=== PATIENT | male | born 1985 | race African-American/Black ===

== ENCOUNTER 2022-07-23 13:11 | Emergency (ER) | payer OTHER, SELFPAY ==
[2022-07-23 13:18] VITALS: BP 155/93; PULSE 88; RESP 20; TEMP 36.5; O2SAT 100
--- NOTE | 2022-07-23 13:44 | ED.URI ---
HPI - URI/Sore Throat General Chief Complaint: Upper Respiratory Infection Stated Complaint: Sore Throat/Cough Time Seen by Provider: 07/23/22 13:35 Source: patient, family and RN notes reviewed History of Present Illness HPI Narrative: Patient is a 37-year-old male who presents the urgent care with complaints of a cough since Wednesday. Patient states that he has been taking Mucinex, Tylenol, ibuprofen and Robitussin. Patient states that the sore throat started after the cough. Denies any fever, nausea, vomiting or body aches. Denies of any ill exposures. No other acute complaints. No acute distress noted. Patient read the plan of care. Some parts of this dictation were generated by voice recognition software and may contain typographical and/or grammatical inaccuracies. Related Data Allergies Allergy/AdvReac Type Severity Reaction Status Date / Time Penicillins Allergy Unknown Unknown Verified 07/23/22 13:30 Review of Systems Review of Systems: CONSTITUTIONAL: Denies fever, chills, or sweats. EYES: Denies visual changes, redness, or discharge. ENT: Denies rhinorrhea, congestion, otalgia. Reports of sore throat and postnasal drainage CARDIOVASCULAR: Denies chest pain, palpitations, or edema. RESPIRATORY: Reports of cough without dyspnea GENITOURINARY: Denies dysuria or hematuria. SKIN: Denies rash or itching. MUSCULOSKELETAL: Denies back pain, joint pain, or myalgia. NEUROLOGIC: Denies headache, numbness, or weakness. All other systems reviewed are negative, except as documented in HPI. PMFSH Comments At the time of my signature, I reviewed and agree with the nursing past medical, surgical, social, and family history. There is no relevant family history pertinent to the patient complaint. Exam Narrative: GENERAL: This is a well-nourished, well-developed patient, in no apparent distress. HEAD: normocephalic, atraumatic. EYES: PERRL. Sclera clear/white. Vision is grossly intact. EARS: External ears normal, auditory canals clear and without drainage, TMs normal without perforation. Hearing grossly intact. NOSE: External nose normal with no obvious nasal discharge, nares without redness, no rhinorrhea. THROAT: Mucous membranes moist, posterior pharynx clear. Moderate postnasal drainage NECK: Neck supple, mild tender bilateral submandibular lymphadenopathy CARDIOVASCULAR: Regular rate and rhythm without murmurs, gallops, or rubs. RESPIRATORY: Dry cough noted on exam. Clear to auscultation. Breath sounds equal bilaterally. No wheezes, rales, or rhonchi. SKIN: warm, intact with no suspicious lesions or rash, good texture and turgor. NEURO: awake, alert, and oriented to person, place and time. There were no obvious focal neurologic abnormalities. EXTREMITIES: No clubbing, cyanosis, or edema. Course Course Level of Care: Express Care Visit Vital Signs Vital signs: Vital Signs Temperature 97.7 F 07/23/22 13:18 Pulse Rate 88 07/23/22 13:18 Respiratory Rate 20 07/23/22 13:18 Blood Pressure 155/93 H 07/23/22 13:18 Pulse Oximetry 100 07/23/22 13:18 Oxygen Delivery Room Air 07/23/22 13:18 Temperature 97.7 F 07/23/22 13:18 Pulse Rate 88 07/23/22 13:18 Respiratory Rate 20 07/23/22 13:18 Blood Pressure 155/93 H 07/23/22 13:18 Pulse Oximetry 100 07/23/22 13:18 Oxygen Delivery Room Air 07/23/22 13:18 Reviewed-patient is informed that they may have pre-hypertension or hypertension based on a blood pressure reading in the department. I recommend the patient call the primary care provider listed on their discharge instructions or a physician of their choice this week to arrange follow-up for further evaluation of possible pre-hypertension or hypertension. MDM - URI/Sore Throat MDM Narrative Medical decision making narrative: Advised patient complete the steroid regimen as prescribed. Be sure to eat and drink with the medication. Use the Tessalon Perles as needed for nonproductive cough. Take
== END 2022-07-23 13:57 | disposition home or self-care (01) ==
PROVIDERS: Emergency Provider Nurse Practitioner Family
DX: J06.9 Acute upper respiratory infection, unspecified (principal)
CPT/HCPCS: 99213; G0463

== ENCOUNTER 2022-09-28 13:03 | Emergency (ER) | payer OTHER, SELFPAY ==
[2022-09-28 13:20] VITALS: BP 148/85; PULSE 82; RESP 20; TEMP 36.6; O2SAT 100
--- NOTE | 2022-09-28 14:39 | ED.URI ---
HPI - URI/Sore Throat General Chief Complaint: Upper Respiratory Infection Stated Complaint: entire head hurts diarrhea Time Seen by Provider: 09/28/22 14:39 Source: patient and RN notes reviewed Mode of arrival: ambulatory Limitations: no limitations History of Present Illness HPI Narrative: 37-year-old male presents with concern for chills, sweats, sinus pressure, fatigue, headache, dizziness when he stands up. He reports symptoms worsened yesterday, other symptoms started 3 days before that. MD elicited complaint: nasal congestion and other Related Data Allergies Allergy/AdvReac Type Severity Reaction Status Date / Time Penicillins Allergy Unknown Unknown Verified 09/28/22 13:28 Review of Systems Review of Systems: CONSTITUTIONAL: Report malaise, reports fatigue. Denies chills, sweats, or fever. EYES: Denies visual changes, redness, or discharge. ENT: Reports rhinorrhea, congestion, sinus pain. Denies otalgia and sore throat. CARDIOVASCULAR: Denies chest pain, palpitations, or edema. RESPIRATORY: Reports cough. Denies dyspnea. GASTROINTESTINAL: Denies abdominal pain, nausea, vomiting, diarrhea SKIN: Denies rash or itching. MUSCULOSKELETAL: Reports myalgia. NEUROLOGIC: Reports headache. All systems reviewed & are unremarkable except as noted in HPI and below PMFSH Comments At time of signature, agree with nursing past medical, surgical, social and family history. There is no relevant family history pertinent to the presenting complaint Exam Narrative: GENERAL: Well-appearing, well-nourished, and in no acute distress. HEAD: Normocephalic EYES: PERRLA, conjunctivae clear ENT: Nares clear, turbinates edematous and erythematous, clear discharge. Mucous membranes moist. TM pearly arteaga with dull light reflex bilaterally; no tragal tenderness. Oropharynx not erythematous without lesions. Tonsils not enlarged and without exudate, no drooling, no hoarseness, no trismus, uvula midline. NECK: Supple. No lymphadenopathy CHEST: Clear to auscultation, breath sounds equal. No wheezing, rhonchi, rales, or stridor. No respiratory distress, speaks in full sentences. HEART: Regular rate and rhythm. No murmur heard. SKIN: Warm, dry, no rash. NEURO: Alert and oriented x3. PSYCH: Normal mood and affect Course Course Emergency Course: Patient is aware of diagnosis, understands and agrees to treatment plan. Anticipatory guidance given. Patient agrees to follow-up as directed and is aware of reasons to seek care at the emergency department. Portions of this record may have been created with voice recognition software Level of Care: Express Care Visit Vital Signs Vital signs: Vital Signs Temperature 97.9 F 09/28/22 13:20 Pulse Rate 82 09/28/22 13:20 Respiratory Rate 20 09/28/22 13:20 Blood Pressure 148/85 H 09/28/22 13:20 Pulse Oximetry 100 09/28/22 13:20 Oxygen Delivery Room Air 09/28/22 13:20 Temperature 97.9 F 09/28/22 13:20 Pulse Rate 82 09/28/22 13:20 Respiratory Rate 20 09/28/22 13:20 Blood Pressure 148/85 H 09/28/22 13:20 Pulse Oximetry 100 09/28/22 13:20 Oxygen Delivery Room Air 09/28/22 13:20 Reviewed. MDM - URI/Sore Throat MDM Narrative Medical decision making narrative: Differential diagnosis considered: Lopez virus, strep pharyngitis, allergic rhinitis, upper respiratory tract infection, sinusitis, rhinosinusitis, nasopharyngitis. viral pharyngitis, otitis media, otitis externa, pneumonia, bronchitis, viral cough syndrome, viral syndrome, and influenza. Exam findings show no acute concerns or changes; patient is non-toxic appearing and is in no distress. Patient is appropriate for outpatient treatment and follow-up. Lab Data Attestation: I reviewed the patient's lab results. Labs: Influenza A Screen Negative Reference Range: Negative Influenza B Screen Negative
== END 2022-09-28 14:53 | disposition home or self-care (01) ==
PROVIDERS: Emergency Provider Nurse Practitioner
DX: J11.1 Influenza due to unidentified influenza virus with other respiratory manifestations (principal); I10 Essential (primary) hypertension; Z86.73 Personal history of transient ischemic attack (TIA), and cerebral infarction without residual deficits
CPT/HCPCS: 87804; 99213; G0463

== ENCOUNTER 2022-11-03 12:09 | Emergency (ER) | payer OTHER, SELFPAY ==
[2022-11-03 12:14] VITALS: BP 139/93; PULSE 69; RESP 16; TEMP 36.6; O2SAT 100
--- NOTE | 2022-11-03 12:58 | ED.HA ---
HPI - Headache General Chief Complaint: Headache Stated Complaint: head pain dizziness Time Seen by Provider: 11/03/22 12:57 Mode of arrival: ambulatory Limitations: no limitations History of Present Illness HPI Narrative: 37-year-old male with history of CVA presents with concern for headache for 2 days, syncopal episode, dizziness. Reports he had an episode of syncope this morning. He denies flu-like symptoms, upper respiratory symptoms. He reports light sensitivity. He denies a history of migraines. MD elicited complaint: headache Related Data Allergies Allergy/AdvReac Type Severity Reaction Status Date / Time Penicillins Allergy Unknown Unknown Verified 09/28/22 13:28 Review of Systems Review of Systems: CONSTITUTIONAL: Denies malaise, chills, sweats, or fever. EYES: Denies visual changes ENT: Denies rhinorrhea, congestion, sinus pain, otalgia or sore throat. CARDIOVASCULAR: Denies chest pain, palpitations, or edema. RESPIRATORY: Denies cough or dyspnea. GASTROINTESTINAL: Denies abdominal pain, nausea, vomiting, diarrhea, bloody, or mucous stools. MUSCULOSKELETAL: Denies back pain, joint pain, or myalgia. NEUROLOGIC: Reports dizziness, headache. All systems reviewed & are unremarkable except as noted in HPI and below PMFSH Comments At time of signature, agree with nursing past medical, surgical, social and family history. There is no relevant family history pertinent to the presenting complaint Exam Narrative: GENERAL: Nontoxic-appearing HEAD: Normocephalic, atraumatic. EYES: PERRLA, sclera clear, and EOMI. No nystagmus. ENT: Nares clear. Mucous membranes moist. TM pearly arteaga with sharp light reflex bilaterally; no tragal tenderness. NECK: Supple. No lymphadenopathy. No jugular venous distension, thyromegaly, or carotid bruits. Carotids were easily palpable bilaterally. CHEST: No respiratory distress. Clear to auscultation. No bony deformities, no asymmetry. Speaks in full sentences. HEART: Regular rate and rhythm. No murmur heard. Normal peripheral pulses. EXTREMITIES: Normal range of motion. SKIN: Warm, dry, no visible rash. NEURO: Alert and oriented x3. No focal deficits. Course Course Emergency Course: Patient is aware of, understands and agrees to be seen in the emergency room. Patient refuses EMS and agrees to proceed directly to the emergency department with his driving him. Portions of this record may have been created with voice recognition software Level of Care: Express Care Visit Vital Signs Vital signs: Vital Signs Temperature 97.8 F 11/03/22 12:14 Pulse Rate 69 11/03/22 12:14 Respiratory Rate 16 11/03/22 12:14 Blood Pressure 139/93 H 11/03/22 12:14 Pulse Oximetry 100 11/03/22 12:14 Oxygen Delivery Room Air 11/03/22 12:14 Temperature 97.8 F 11/03/22 12:14 Pulse Rate 69 11/03/22 12:14 Respiratory Rate 16 11/03/22 12:14 Blood Pressure 139/93 H 11/03/22 12:14 Pulse Oximetry 100 11/03/22 12:14 Oxygen Delivery Room Air 11/03/22 12:14 Reviewed. Transfer Transfered to: [facility] Transportation: Other (Refused EMS, private vehicle) Transfer rationale: Syncopal episode, headache, dizziness, history of CVA Accepting physician: Shree AGARWAL - Headache MDM Narrative Medical decision making narrative: Patient's history and symptoms warrant further evaluation emergency department Critical Care Time Critical Care Time Critical Care Time: No Discharge Plan Discharge Clinical Impression: Headache Patient Disposition: Acute Care Hospital Condition: Stable Follow-up/Referrals: PHYSICIAN,INVESTOR RELATIONS ANALYST [Primary Care Provider] -
== END 2022-11-03 13:15 | disposition short-term general hospital (02) ==
PROVIDERS: Emergency Provider Nurse Practitioner
DX: R51.9 Headache, unspecified (principal); I10 Essential (primary) hypertension; Z86.73 Personal history of transient ischemic attack (TIA), and cerebral infarction without residual deficits
CPT/HCPCS: 99212; G0463

== ENCOUNTER 2023-01-25 13:46 | Emergency (ER) | payer OTHER, SELFPAY ==
[2023-01-25 13:52] VITALS: BP 132/90; PULSE 80; RESP 20; TEMP 36.7; O2SAT 100
--- NOTE | 2023-01-25 14:09 | ED.URI ---
HPI - URI/Sore Throat General Chief Complaint: Upper Respiratory Infection Stated Complaint: Fever/Cough/Vomiting Time Seen by Provider: 01/25/23 13:50 Source: patient and RN notes reviewed History of Present Illness HPI Narrative: Patient is a 37-year-old male who presents to urgent care with complaints of a sore throat, head pressure, headache, ear pain, fever, nausea, vomiting and congestion since . Patient has been taking DayQuil, NyQuil and increasing his fluid intake. States he did have exposure to a stepdaughter who had strep however was on antibiotics for 24 hours prior to staying at his home. No other acute complaints. No acute distress noted. Patient aware of the plan of care. Some parts of this dictation were generated by voice recognition software and may contain typographical and/or grammatical inaccuracies. Related Data Allergies Allergy/AdvReac Type Severity Reaction Status Date / Time Penicillins Allergy Unknown Unknown Verified 01/25/23 14:03 Review of Systems Review of Systems: CONSTITUTIONAL: Reports of fever EYES: Denies visual changes, redness, or discharge. ENT: Reports of congestion, postnasal drainage, sore throat, bilateral earache CARDIOVASCULAR: Denies chest pain, palpitations, or edema. RESPIRATORY: Reports chest congestion and cough GASTROINTESTINAL: Denies abdominal pain, nausea, vomiting, or diarrhea. GENITOURINARY: Denies dysuria or hematuria. SKIN: Denies rash or itching. MUSCULOSKELETAL: Denies back pain, joint pain, or myalgia. NEUROLOGIC: Reports of headache All other systems reviewed are negative, except as documented in HPI. PMFSH Comments At the time of my signature, I reviewed and agree with the nursing past medical, surgical, social, and family history. There is no relevant family history pertinent to the patient complaint. Exam Narrative: GENERAL: This is a well-nourished, well-developed patient, in no apparent distress. HEAD: normocephalic, atraumatic. Frontal sinus tenderness EYES: PERRL. Sclera clear/white. Vision is grossly intact. EARS: External ears normal, auditory canals clear and without drainage, TMs normal without perforation. Hearing grossly intact. NOSE: External nose normal with no obvious nasal discharge, nares without redness, clear rhinorrhea. THROAT: Mucous membranes moist, moderate postnasal drainage with mild erythema to posterior pharynx without exudate or ulceration NECK: Neck supple CARDIOVASCULAR: Regular rate and rhythm RESPIRATORY: Clear to auscultation. Breath sounds equal bilaterally. No wheezes, rales, or rhonchi. SKIN: warm, intact with no suspicious lesions or rash, good texture and turgor. NEURO: awake, alert, and oriented to person, place and time. There were no obvious focal neurologic abnormalities. EXTREMITIES: No clubbing, cyanosis, or edema. Course Course Level of Care: Express Care Visit Vital Signs Vital signs: Vital Signs Temperature 98.1 F 01/25/23 13:52 Pulse Rate 80 01/25/23 13:52 Respiratory Rate 20 01/25/23 13:52 Blood Pressure 132/90 01/25/23 13:52 Pulse Oximetry 100 01/25/23 13:52 Oxygen Delivery Room Air 01/25/23 13:52 Temperature 98.1 F 01/25/23 13:52 Pulse Rate 80 01/25/23 13:52 Respiratory Rate 20 01/25/23 13:52 Blood Pressure 132/90 01/25/23 13:52 Pulse Oximetry 100 01/25/23 13:52 Oxygen Delivery Room Air 01/25/23 13:52 Reviewed MDM - URI/Sore Throat MDM Narrative Medical decision making narrative: Reviewed lab results with the patient. He is aware that strep swab was negative. Educated patient on culture we will call within 72 hours if culture is positive and antibiotics are necessary.Advised patient to continue [id number] antihistamine such as Claritin or Zyrtec. Use Flonase nasal spray for ear pressure and postnasal drainage. Use Tylenol/ibuprofen as needed. Complete the steroid regimen as prescribed. Be sure to eat and drink with the medication. Foll
== END 2023-01-25 14:30 | disposition home or self-care (01) ==
PROVIDERS: Emergency Provider Nurse Practitioner Family
DX: J32.9 Chronic sinusitis, unspecified (principal); J02.9 Acute pharyngitis, unspecified
CPT/HCPCS: 87081; 87880; 99213; G0463

== ENCOUNTER 2023-03-24 11:18 | Emergency (ER) | payer OTHER, SELFPAY ==
[2023-03-24 11:26] VITALS: BP 146/100; PULSE 83; RESP 18; TEMP 36.4; O2SAT 100
--- NOTE | 2023-03-24 11:27 | ED.URI ---
HPI - URI/Sore Throat General Chief Complaint: Upper Respiratory Infection Stated Complaint: Dizziness/Runny Nose Time Seen by Provider: 03/24/23 11:28 Source: patient Mode of arrival: ambulatory Limitations: no limitations History of Present Illness HPI Narrative: 37-year-old male presents with complaint of nasal congestion, sore throat, cough, ears clogged, headaches, fatigue for 2 days. Patient missed work today and needs a work note. Wash that he vomited once last night. Afebrile. Has not started any [id number] medications to treat his symptoms. All systems reviewed and negative except as noted above. Related Data Allergies Allergy/AdvReac Type Severity Reaction Status Date / Time Penicillins Allergy Unknown Unknown Verified 01/25/23 14:03 Review of Systems Review of Systems: CONSTITUTIONAL: Denies fever, chills, or sweats. EYES: Denies visual changes, redness, or discharge. ENT: Reports rhinorrhea, congestion, sore throat, or otalgia. CARDIOVASCULAR: Denies chest pain, palpitations, or edema. RESPIRATORY: Reports cough. Denies dyspnea. GASTROINTESTINAL: Denies abdominal pain, nausea, vomiting, or diarrhea. GENITOURINARY: Denies dysuria or hematuria. SKIN: Denies rash or itching. MUSCULOSKELETAL: Denies back pain, joint pain, or myalgia. NEUROLOGIC: Reports headache. Denies numbness, or weakness. PSYCHIATRIC: Denies anxiety or depression. All other systems reviewed are negative, except as documented in HPI. PMFSH Comments At time of signature, agree with nursing past medical, surgical, social and family history. There is no relevant family history pertinent to the presenting complaint. Exam Narrative: GENERAL: This is a well-nourished, well-developed patient, ill-appearing but no distress. HEAD: normocephalic, atraumatic. EYES: PERRL. Sclera clear/white. Vision is grossly intact. EARS: External ears normal, auditory canals clear and without drainage, fluid to bilateral TMs without erythema. NOSE: External nose normal with clear nasal drainage with erythema and swelling to both nares. THROAT: Mucous membranes moist, erythema with post nasal drainage NECK: Neck supple, non-tender without lymphadenopathy, masses or thyromegaly. CARDIOVASCULAR: Regular rate and rhythm without murmurs, gallops, or rubs. RESPIRATORY: Clear to auscultation. Breath sounds equal bilaterally. No wheezes, rales, or rhonchi. SKIN: warm, Dry, intact with no suspicious lesions or rash, good texture and turgor. NEURO: awake, alert, and oriented to person, place and time. There were no obvious focal neurologic abnormalities. EXTREMITIES: No joint tenderness, effusion, or edema noted. Course Course Level of Care: Express Care Visit Vital Signs Vital signs: Vital Signs Temperature 36.4 C 03/24/23 11:26 Pulse Rate 83 03/24/23 11:26 Respiratory Rate 18 03/24/23 11:26 Blood Pressure 146/100 H 03/24/23 11:26 Pulse Oximetry 100 03/24/23 11:26 Oxygen Delivery Room Air 03/24/23 11:26 Temperature 36.4 C 03/24/23 11:26 Pulse Rate 83 03/24/23 11:26 Respiratory Rate 18 03/24/23 11:26 Blood Pressure 146/100 H 03/24/23 11:26 Pulse Oximetry 100 03/24/23 11:26 Oxygen Delivery Room Air 03/24/23 11:26 Reviewed MDM - URI/Sore Throat MDM Narrative Medical decision making narrative: Patient is aware of diagnosis, understands and agrees to treatment plan. Anticipatory guidance given. Patient agrees to follow-up as directed and is aware of reasons to seek care at the emergency department. Portions of this record may have been created with voice recognition software Lab Data Labs: Influenza A Screen Negative Reference Range: Negative Influenza B Screen Negative Reference Range: Negative Discharge Plan Discharge Clinical Impression: Viral upper respirat
== END 2023-03-24 12:03 | disposition home or self-care (01) ==
PROVIDERS: Emergency Provider Nurse Practitioner Family
DX: J06.9 Acute upper respiratory infection, unspecified (principal); Z20.822 Contact with and (suspected) exposure to COVID-19; I10 Essential (primary) hypertension; Z86.73 Personal history of transient ischemic attack (TIA), and cerebral infarction without residual deficits
CPT/HCPCS: 87426; 87804; 99213; C9803; G0463

== ENCOUNTER 2023-04-18 17:31 | Emergency (ER) | payer OTHER, SELFPAY ==
[2023-04-18 17:35] VITALS: BP 139/92; PULSE 84; RESP 16; TEMP 36.6; O2SAT 100
--- NOTE | 2023-04-18 17:52 | ED.GENADULT ---
HPI - General Adult General Chief complaint: Upper Respiratory Infection Stated complaint: Sinus Pain/Diarrhea Source: patient Mode of arrival: ambulatory Limitations: no limitations History of Present Illness HPI narrative: Patient presents for evaluation of sinus symptoms and diarrhea. Reports sinus congestion and green drainage from his nares the past week. He states several of his children have similar symptoms. He denies any fever, chills, sore throat cough. He has experience diarrhea for the last 3 days. No new antibiotics, medications. Denies any blood or mucus in the stool. Denies abdominal pain, nausea, and vomiting. He thinks he may have IBS but has never received that diagnosis from a medical professional. Related Data Allergies Allergy/AdvReac Type Severity Reaction Status Date / Time Penicillins Allergy Unknown Unknown Verified 04/18/23 17:42 Review of Systems Review of Systems: CONSTITUTIONAL: Denies fever, chills, or sweats. EYES: Denies visual changes, redness, or discharge. ENT: Reports sinus congestion and thick green drainage from the nares. CARDIOVASCULAR: Denies chest pain, palpitations, or edema. RESPIRATORY: Denies cough or dyspnea. GASTROINTESTINAL: Reports diarrhea. Denies abdominal pain, nausea, or vomiting GENITOURINARY: Denies dysuria or hematuria. SKIN: Denies rash or itching. MUSCULOSKELETAL: Denies back pain, joint pain, or myalgia. NEUROLOGIC: Denies headache, numbness, dizziness, or weakness. PSYCHIATRIC: Denies anxiety or depression. PMFSH Past Medical History Medical History (Updated 04/18/23 @ 18:20 by Herminio Ann, [facility], [place], ) Diarrhea No pertinent past medical history Surgical History Surgical History (Reviewed 04/18/23 @ 17:56 by Herminio Ann, [facility] [place], ) No pertinent past surgical history Family History Family History (Reviewed 04/18/23 @ 17:56 by Herminio Ann, [facility] [place], ) Mother Family history non-contributory Social History Social History (Reviewed 04/18/23 @ 17:56 by Herminio Ann, [facility], [place], ) Substance use: never Living arrangements: with family Gender identity (if verbalized by the patient): Male Sexual Orientation (if Verbalized by the Patient): Straight or Heterosexual Spiritual care concerns: No Exam Narrative: GENERAL: Well-appearing, well-nourished, and in no acute distress. HEAD: Normocephalic, atraumatic. EYES: PERRLA and EOMI. ENT: Nares with clear and yellow rhinorrhea. Mucous membranes moist. Oropharynx without tonsillar hypertrophy exudate or other lesions. Mild bilateral TM erythema. NECK: Supple. No adenopathy or masses. No carotid bruits or JVD CHEST: Clear to auscultation. No respiratory distress. No wheezes rales or rhonchi HEART: Regular rate and rhythm. No murmur heard. Normal peripheral pulses. ABDOMEN: Soft, nontender, nondistended, normal active bowel sounds. EXTREMITIES: Normal range of motion. No edema. SKIN: Warm, dry, no rash. NEURO: No focal deficits. Alert and oriented x3. PSYCH: Normal mood and affect. Course Course Emergency Course: This is a 37-year-old male who presented for evaluation of sinus symptoms and diarrhea. Influenza was negative. He meets criteria for ABRS based upon duration of time for which she has been symptomatic as well as nature of discharge. Allergy to PCN products so will treat with doxycycline. He has no abdominal pain to suggest colitis. Will tx with lomotil. Follow bland diet. Go to ER for abdominal pain or worsening symptoms. Pt in agreement with plan of care. Level of Care: Express Care Visit Vital Signs Vital signs: Vital Signs Temperature 36.6 C 04/18/23 17:35 Pulse Rate 84 04/18/23 17:35 Respiratory Rate 16 04/18/23 17:35 Blood Pressure 139/92 H 04/18/23 17:35 Pulse Oximetry 100 04/18/23 17:35 Oxygen Delivery Room Air 04/18/23 17:35 Temperature 36.6 C 04/18/23 17:35 Pulse Rate 84 04/18/23 17:35 Respiratory Rate 16
== END 2023-04-18 18:25 | disposition home or self-care (01) ==
PROVIDERS: Emergency Provider Nurse Practitioner
DX: J01.90 Acute sinusitis, unspecified (principal); R19.7 Diarrhea, unspecified
CPT/HCPCS: 87804; 99213; G0463

== ENCOUNTER 2023-09-13 10:20 | Emergency (ER) | payer OTHER, SELFPAY ==
[2023-09-13 10:30] VITALS: BP 137/103; PULSE 66; RESP 20; TEMP 36.3; O2SAT 100
--- NOTE | 2023-09-13 10:48 | ED.EAR ---
HPI - Ear Problem General Chief complaint: Ear Stated complaint: Ringing in left ear Source: patient Mode of arrival: ambulatory Limitations: no limitations History of Present Illness HPI Narrative: 38-year-old male presented for complaint of ring to the left ear since last night. Denies ear pain, dizziness, ear drainage or upper respiratory symptoms. Not taking anything for symptoms. MD Complaint: ear pain Related Data Home Medications Medication Instructions Recorded Confirmed lisinopril 20 mg tablet 20 mg PO DAILY 09/13/23 09/13/23 Allergies Allergy/AdvReac Type Severity Reaction Status Date / Time Penicillins Allergy Unknown Unknown Verified 09/13/23 10:47 Review of Systems Review of Systems: CONSTITUTIONAL: Denies malaise, chills, or fever. EYES: Denies visual changes, redness, or discharge. ENT: Denies rhinorrhea, congestion, sinus pain, and sore throat. Reports ear ringing CARDIOVASCULAR: Denies chest pain, palpitations, or edema. RESPIRATORY: Denies cough or dyspnea. GASTROINTESTINAL: Denies abdominal pain, nausea, vomiting, diarrhea SKIN: Denies rash or itching. MUSCULOSKELETAL: Denies myalgia. NEUROLOGIC: Denies headache. All systems reviewed & are unremarkable except as noted in HPI and below PMFSH Past Medical History Medical History Diarrhea No pertinent past medical history Surgical History Surgical History No pertinent past surgical history Family History Family History Mother Family history non-contributory Social History Social History Substance use: never Living arrangements: with family Gender identity (if verbalized by the patient): Male Sexual Orientation (if Verbalized by the Patient): Straight or Heterosexual Spiritual care concerns: No Comments At time of signature, agree with nursing past medical, surgical, social and family history. There is no relevant family history pertinent to the presenting complaint Exam Narrative: GENERAL: Well-appearing HEAD: Normocephalic EYES: PERRLA, conjunctivae clear ENT: Nares clear. Mucous membranes moist. Right TM pearly arteaga with dull light reflex; Left TM erythematous, bulging and intact, canal erythematous, No drainage no tragal tenderness. Oropharynx not erythematous without lesions. NECK: Supple. No lymphadenopathy CHEST: Clear to auscultation, breath sounds equal. No wheezing, rhonchi, rales, or stridor. No respiratory distress, speaks in full sentences. HEART: Regular rate and rhythm. No murmur heard. SKIN: Warm, dry, no rash. NEURO: Alert and oriented x3. PSYCH: Normal mood and affect Course Course Emergency Course: Patient is aware of diagnosis, understands and agrees to treatment plan. Anticipatory guidance given. Patient agrees to follow-up as directed and is aware of reasons to seek care at the emergency department. Portions of this record may have been created with voice recognition software Level of Care: Express Care Visit Vital Signs Vital signs: Vital Signs Temperature 97.4 F L 09/13/23 10:30 Pulse Rate 66 09/13/23 10:30 Respiratory Rate 20 09/13/23 10:30 Blood Pressure 137/103 H 09/13/23 10:30 Pulse Oximetry 100 09/13/23 10:30 Oxygen Delivery Room Air 09/13/23 10:30 Temperature 97.4 F L 09/13/23 10:30 Pulse Rate 66 09/13/23 10:30 Respiratory Rate 20 09/13/23 10:30 Blood Pressure 137/103 H 09/13/23 10:30 Pulse Oximetry 100 09/13/23 10:30 Oxygen Delivery Room Air 09/13/23 10:30 Reviewed Medical Decision Making MDM Narrative Medical decision making narrative: Discussed physical exam findings consistent with left AOM. Advised supportive measures and signs/symptoms to go to the ER. Patient is appropriate for outpatient treatment and
== END 2023-09-13 10:55 | disposition home or self-care (01) ==
PROVIDERS: Emergency Provider Nurse Practitioner Family
DX: H66.92 Otitis media, unspecified, left ear (principal)
CPT/HCPCS: 99213; G0463

== ENCOUNTER 2024-07-20 18:51 | Emergency (ER) | payer OTHER, SELFPAY ==
[2024-07-20 19:05] VITALS: BP 140/82; PULSE 121; RESP 16; TEMP 37.8; O2SAT 100
--- NOTE | 2024-07-20 19:25 | ED.URI ---
HPI - URI/Sore Throat General Chief Complaint: Upper Respiratory Infection Stated Complaint: dizzy/head/throat/chills History of Present Illness HPI Narrative: 39-year-old male presented for complaint of headache, sore throat, fevers and chills. Onset yesterday. Slept most of today. Reports decreased taste. Not taking anything for symptoms. Denies sob, wheezing, n/v/d. Related Data Home Medications Medication Instructions Recorded Confirmed losartan 100 mg tablet 100 mg PO DAILY 07/20/24 07/20/24 Allergies Allergy/AdvReac Type Severity Reaction Status Date / Time Penicillins Allergy Unknown Unknown Verified 09/13/23 10:47 Review of Systems Review of Systems: CONSTITUTIONAL: reports body aches, fever, chills, or sweats. EYES: Denies visual changes, redness, or discharge. ENT: reports rhinorrhea, congestion, sore throat denies otalgia. CARDIOVASCULAR: Denies chest pain, palpitations, or edema. RESPIRATORY: Denies dyspnea. GASTROINTESTINAL: Denies abdominal pain, nausea, vomiting, or diarrhea. SKIN: Denies rash, itching, or wounds. MUSCULOSKELETAL: Denies back pain, joint pain NEUROLOGIC: Denies headache PMFSH Past Medical History Medical History Diarrhea No pertinent past medical history Surgical History Surgical History No pertinent past surgical history Family History Family History Mother Family history non-contributory Social History Social History Substance use: never Living arrangements: with family Gender identity (if verbalized by the patient): Male Sexual Orientation (if Verbalized by the Patient): Straight or Heterosexual Spiritual care concerns: No Exam Narrative: GENERAL: Ill-appearing, nontoxic no acute distress. EYES: conjunctivae clear ENT: Mucous membranes moist. TMs pearly arteaga with normal light reflex bilaterally; no tragal tenderness. Oropharynx mimldly erythematous without lesions. Tonsils enlarged and without exudate. No drooling, no hoarseness, no trismus, uvula midline. No tripod positioning, hot potato voice, or soft palate swelling. NECK: Supple. No lymphadenopathy CHEST: Clear to auscultation, breath sounds equal. No respiratory distress, speaks in full sentences. HEART: Regular rate and rhythm. No murmur heard. SKIN: Warm, dry, no rash. NEURO: Alert and oriented x3. Course Course Emergency Course: Patient is aware of diagnosis, understands and agrees to treatment plan. Anticipatory guidance given. Patient agrees to follow-up as directed and is aware of reasons to seek care at the emergency department. Portions of this record may have been created with voice recognition software Level of Care: Express Care Visit Vital Signs Vital signs: Vital Signs Temperature 100.1 F H 07/20/24 19:05 Pulse Rate 121 H 07/20/24 19:05 Respiratory Rate 16 07/20/24 19:05 Blood Pressure 140/82 07/20/24 19:05 Pulse Oximetry 100 07/20/24 19:05 Oxygen Delivery Room Air 07/20/24 19:05 Temperature 100.1 F H 07/20/24 19:05 Pulse Rate 121 H 07/20/24 19:05 Respiratory Rate 16 07/20/24 19:05 Blood Pressure 140/82 07/20/24 19:05 Pulse Oximetry 100 07/20/24 19:05 Oxygen Delivery Room Air 07/20/24 19:05 MDM - URI/Sore Throat MDM Narrative Medical decision making narrative: Neg flu, covid and strep result reviewed with pt. Advise supportive treatments. Patient is appropriate for outpatient treatment and follow-up. Differential Diagnosis Differential diagnosis: Likely upper respiratory infection, sinusitis, viral infection, bronchitis, influenza and pharyngitis Discharge Plan Discharge Clinical Impression: Upper respiratory infection Patient Disposition: Home, Self-Care Condition: Stable In
[2024-07-20 19:35] LABS: EDINFLUASCREEN Negative (Negative); EDINFLUBSCREEN Negative (Negative); EDSTREPNEGPOS1 Negative (Negative)
== END 2024-07-20 19:38 | disposition home or self-care (01) ==
PROVIDERS: Emergency Provider Nurse Practitioner Family
DX: J06.9 Acute upper respiratory infection, unspecified (principal)
CPT/HCPCS: 87081; 87804; 87880; 99213; G0463

== ENCOUNTER 2024-09-04 11:34 | Emergency (ER) | payer OTHER, SELFPAY ==
[2024-09-04 11:40] VITALS: BP 137/86; PULSE 81; RESP 17; TEMP 36.8; O2SAT 100
--- NOTE | 2024-09-04 13:04 | ED_ITS ---
HPI - General Adult General Chief complaint: Nausea/Vomiting/Diarrhea Stated complaint: Diarrhea Time Seen by Provider: 09/04/24 13:00 Source: patient Mode of arrival: ambulatory Limitations: no limitations History of Present Illness HPI narrative: 39 year old male with complaints of diarrhea and abdominal cramping since yesterday, took Imodium yesterday x2 and Pepto-Bismol without improvement. Patient reports that he took Pepto Bismol today and he has had 8 loose stools today since 0700.. Patient reports no acute pain to his abdomen states increase gas denies any nausea or vomiting. Patient states no fevers or chills. Patient reports that he has drank some water can not eat goes straight thru him. MD complaint: diarrhea Onset (ago): day(s) (day 2 of symptoms) Location: abdomen (mid) Quality: other (crampy) Treatments prior to arrival: other (immodium and Pepto Bismol) Related Data Home Medications Medication Instructions Recorded Confirmed losartan 100 mg tablet 100 mg PO DAILY 07/20/24 07/20/24 Allergies Allergy/AdvReac Type Severity Reaction Status Date / Time Penicillins Allergy Unknown Unknown Verified 09/13/23 10:47 Review of Systems Review of Systems: CONSTITUTIONAL: Denies fever, chills, or sweats. ENT: Denies rhinorrhea, congestion, sore throat, or otalgia. CARDIOVASCULAR: Denies chest pain, palpitations, or edema. RESPIRATORY: Denies cough or dyspnea. GASTROINTESTINAL: Reports no acute abdominal pain states crampy,no nausea,no vomiting, diarrhea since yesterday GENITOURINARY: Denies dysuria or hematuria. SKIN: Denies rash or itching. MUSCULOSKELETAL: Denies back pain, joint pain, or myalgia. NEUROLOGIC: Denies headache, numbness, or weakness. All systems reviewed & are unremarkable except as noted in HPI and below PMFSH Past Medical History Medical History CVA (cerebral vascular accident) age 32 Diarrhea Hypertension No pertinent past medical history Surgical History Surgical History S/P right rotator cuff repair Family History Family History Mother Family history non-contributory Social History Social History Substance use: never Living arrangements: with family Gender identity (if verbalized by the patient): Male Sexual Orientation (if Verbalized by the Patient): Straight or Heterosexual Spiritual care concerns: No Comments At time of signature, agree with nursing past medical, surgical, social and family history. There is no relevant family history pertinent to the presenting complaint Exam Narrative: GENERAL: Well-appearing, well-nourished, and in no acute distress. HEAD: Normocephalic, atraumatic. EYES: PERRLA, conjunctivae clear, and EOMI. ENT: Nares clear. Mucous membranes moist. Oropharynx without edema, erythema, or lesions. Tonsils not enlarged and without exudate. NECK: Supple. No lymphadenopathy CHEST: Speaks in full sentences. No respiratory distress.SAO2 100% on room air HEART: Regular rate and rhythm. ABDOMEN: Soft, flat, nondistended. No guarding, rebound tenderness, or rigid. No pulsatilla masses. Bowel sounds present in all four quadrants. No organomegaly. Negative Ricks?s sign. No periumbilical tenderness. No Supra public tenderness or distension.noMcBurney point tenderness Good femoral pulses bilaterally. No hernia noted. No scars or surface trauma. SKIN: Warm, dry, no rash. NEURO:? Alert and oriented x3. PSYCH: Normal mood and affect Course Course Emergency Course: Patient is aware of diagnosis, understands and agrees to treatment plan.? Anticipatory guidance given.? Patient agrees to follow-up as directed and is aware of reasons to seek care at the emergency department. Portions of this record may have been created with voice recognition software Level of Care: Express Care Visit Vital Signs Vital signs: Vital Signs Temperature 36.8 C 09/04/24 11:40 Pulse Rate 81 09/04/24 11:40 Respiratory Rate 17 09/04/24 11:40 Blood Pressure 137/86 09/04/24 11:40 Pulse Oximetry 100 09/04/24 11:40 Oxygen Delivery Room Air 09/04/24 11:40 Temperature 36.8 C 09/04/24 11:40 Pulse Rate 81 09/04/24 11:40 Respiratory Rate 17 09/04/24 11:40 Blood Pressure 137/86 09/04/24 11:40 Pulse Oximetry 100 09/04/24 11:40 Oxygen Delivery Room Air 09/04/24 11:40 Reviewed Medical Decision Making Differential Diagnosis Differential Diagnosis: abdominal cramping, diarrhea, viral infection gastroenteritis Medical Records Medical records reviewed: Yes I reviewed the external patient's medical records. Vital Signs Vital Signs: Vital Signs Temperature 36.8 C 09/04/24 11:40 Pulse Rate 81 09/04/24 11:40 Respiratory Rate 17 09/04/24 11:40 Blood Pressure 137/86 09/04/24 11:40 Pulse Oximetry 100 09/04/24 11:40 Oxygen Delivery Room Air 09/04/24 11:40 Temperature 36.8 C 09/04/24 11:40 Pulse Rate 81 09/04/24 11:40 Respiratory Rate 17 09/04/24 11:40 Blood Pressure 137/86 09/04/24 11:40 Pulse Oximetry 100 09/04/24 11:40 Oxygen Delivery Room Air 09/04/24 11:40 reviewed Critical Care Time Critical Care Time Critical Care Time: No Discharge Plan Discharge Clinical Impression: Diarrhea Patient Disposition: Home, Self-Care Condition: Stable Instructions: Clear Liquid Diet (ED), Acute Diarrhea (ED) Additional Instructions: Clear liquids for the next 24 hours, then advance to a bland diet as tolerated A bland diet can consist of--BRAT diet which is bananas, rice, applesauce, and toast Avoid fried, greasy, fatty, fried foods Avoid caffeine, nicotine, and alcohol Return to your regular diet in the next 3-4 days [id number] Imodium if develop diarrhea Follow-up with her PCP if continued problems or uncontrolled pain If your symptoms persist, change or worsen significantly before you can contact your personal physician then please, without delay, go to the emergency department for further evaluation. Follow-up with PCP in 7-10 days or sooner if needed Follow up with PCP soon in regards to your blood pressure which is elevated above threshold for referral. Blood pressure above 120/80 may indicate pre- hypertension. Prescriptions: New dicyclomine 20 mg tablet 20 mg PO TID Qty: 14 0RF Rx Instructions: for abdominal cramping No Action losartan 100 mg tablet 100 mg PO DAILY Follow-up/Referrals: PHYSICIAN,SENIOR PAYROLL MANAGER [Primary Care Provider] - Stand Alone Forms: Work/School Release IP Time of Disposition: 13:18 Quality [place] Coma Scale Eyes: Open Verbal: Oriented and Alert Motor: Follows Commands Kevin Coma Total Score: 15
== END 2024-09-04 13:22 | disposition home or self-care (01) ==
PROVIDERS: Emergency Provider Registered Nurse
DX: R19.7 Diarrhea, unspecified (principal); I10 Essential (primary) hypertension; Z86.73 Personal history of transient ischemic attack (TIA), and cerebral infarction without residual deficits
CPT/HCPCS: 99213; G0463

== ENCOUNTER 2024-09-12 12:46 | Emergency (ER) | payer OTHER, SELFPAY ==
[2024-09-12 12:52] VITALS: BP 139/95; PULSE 96; RESP 16; TEMP 37.6; O2SAT 100
--- NOTE | 2024-09-12 13:33 | ED.URI ---
HPI - URI/Sore Throat General Chief Complaint: Upper Respiratory Infection Stated Complaint: cough/dizzy/fever Time Seen by Provider: 09/12/24 13:33 Source: patient and RN notes reviewed Mode of arrival: ambulatory Limitations: no limitations History of Present Illness HPI Narrative: 39-year-old male presented for complaint of cough, sinus congestion and pressure, ear pain, and subjective fever. Onset 1 week. Onset yesterday. Slept most of today. Denies sob, wheezing, n/v/d, or lethargy. Takes occasional antihistamine. MD elicited complaint: cough Related Data Home Medications Medication Instructions Recorded Confirmed losartan 100 mg tablet 100 mg PO DAILY 07/20/24 07/20/24 Allergies Allergy/AdvReac Type Severity Reaction Status Date / Time Penicillins Allergy Unknown Unknown Verified 09/13/23 10:47 Review of Systems Review of Systems: CONSTITUTIONAL: Endorses malaise, chills, sweats, fever EYES: Denies visual changes, redness, or discharge ENT: Reports rhinorrhea, congestion, sinus pain, otalgia, denies sore throat CARDIOVASCULAR: Denies chest pain, palpitations, edema RESPIRATORY: Reports cough, post nasal drainage. Denies dyspnea GASTROINTESTINAL: Denies abdominal pain, nausea, vomiting, diarrhea MUSCULOSKELETAL: Endorses myalgia NEUROLOGIC: Reports headache PMFSH Past Medical History Medical History CVA (cerebral vascular accident) age 32 Diarrhea Hypertension No pertinent past medical history Surgical History Surgical History S/P right rotator cuff repair Family History Family History Mother Family history non-contributory Social History Social History Substance use: never Living arrangements: with family Gender identity (if verbalized by the patient): Male Sexual Orientation (if Verbalized by the Patient): Straight or Heterosexual Spiritual care concerns: No Exam Narrative: GENERAL: mildly Ill-appearing, nontoxic EYES: conjunctivae clear ENT: Mucous membranes moist. TMs pearly arteaga with dull light reflex bilaterally; no tragal tenderness. Oropharynx mildly erythematous without lesions or exudate, no drooling, no hoarseness, no trismus, uvula midline. No tripod positioning, muffled voice, soft palate or pharyngeal wall bulging NECK: Supple. No lymphadenopathy CHEST: Clear to auscultation, breath sounds equal. No wheezing, rhonchi, rales, or stridor. No respiratory distress, speaks in full sentences. HEART: Regular rate and rhythm. No murmur heard. SKIN: Warm, dry, no rash. NEURO: Alert and oriented x3. PSYCH: Normal mood and affect Course Course Emergency Course: Patient is aware of diagnosis, understands and agrees to treatment plan. Anticipatory guidance given. Patient agrees to follow-up as directed and is aware of reasons to seek care at the emergency department. Portions of this record may have been created with voice recognition software Level of Care: Express Care Visit Vital Signs Vital signs: Vital Signs Temperature 99.6 F 09/12/24 12:52 Pulse Rate 96 09/12/24 12:52 Respiratory Rate 16 09/12/24 12:52 Blood Pressure 139/95 H 09/12/24 12:52 Pulse Oximetry 100 09/12/24 12:52 Oxygen Delivery Room Air 09/12/24 12:52 Temperature 99.6 F 09/12/24 12:52 Pulse Rate 96 09/12/24 12:52 Respiratory Rate 16 09/12/24 12:52 Blood Pressure 139/95 H 09/12/24 12:52 Pulse Oximetry 100 09/12/24 12:52 Oxygen Delivery Room Air 09/12/24 12:52 reviewed MDM - URI/Sore Throat MDM Narrative Medical decision making narrative: Discussed physical exam findings, reviewed prescriptions. Advise supportive treatments. Patient is appropriate for outpatient treatment and follow-up. Differential Diagnosis Differential diagnosis: Likely upper respiratory infection, sinusitis and viral infection Discharge Plan Discharge Clinical Impression: Sinusitis Patient Disposition: Home, Self-Care Condition: Stable Instructions: Antibiotic Form, Sinusitis (ED) Additional Instructions: Recommendations: Flonase spray and/or saline nasal spray Zyrtec (or Claritin/Clara) over the counter Cough syrup may cause drowsiness; avoid driving or take it at night time. Tylenol 1000mg every 8 hours as needed for pain Rest, push fluids, and increase humidity of the air at home. Follow up with your primary care provider in 1 week. Go to the ER for worsening symptoms or concerns. Prescriptions: New azithromycin [Zithromax Z-Colt] 250 mg tablet See Rx Instructions .ROUTE .COMPLEX Qty: 6 0RF Rx Instructions: For 250 mg dose pack: take 500 mg today (day 1), then 250 mg for 4 days (days 2-5) prednisone 50 mg tablet 50 mg PO DAILY Qty: 5 0RF No Action losartan 100 mg tablet 100 mg PO DAILY Follow-up/Referrals: PHYSICIAN,LIGHTING ENGINEERING TECHNICIAN [Primary Care Provider] - Time of Disposition: 13:40
== END 2024-09-12 13:43 | disposition home or self-care (01) ==
PROVIDERS: Emergency Provider Nurse Practitioner Family
DX: J32.9 Chronic sinusitis, unspecified (principal); I10 Essential (primary) hypertension; Z86.73 Personal history of transient ischemic attack (TIA), and cerebral infarction without residual deficits
CPT/HCPCS: 99213; G0463

== ENCOUNTER 2025-03-29 15:59 | Emergency (ER) | payer OTHER, SELFPAY ==
--- OUTSIDE RECORDS SUMMARY | 2025-03-29 16:02 | XMS_ITS | Referral Summary ---
Author Organization [facility] Address [address] [place] [address] Care Team Providers Care Doweling Machine Operator Name Role Phone Маринаserge Oswald Hauserony Primary Care Provider [phone] Allergies Active Allergy Reactions Criticality Noted Date Comments Penicillins Unknown Pt unsure of reaction states was childhood reaction. 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 Patient has 6 children at home. He had a fever of 102 on the day of presentation. He has been afebrile since admission. Rapid flu is negative. Will continue was symptomatic management. Will order Claritin daily. No decongestant at this time as patient's blood pressures are borderline. P.r.n. Tylenol for pain and/or fever. Brain mass 01/04/2018 Assessment & Plan (01/04/2018 4:07 AM TREATMENT MANAGER): Hypodense for a focus noted on CT scan in the left parietal lobe concerning for possible mass. Patient appears asymptomatic. MRI is pending. Will await result. Cerebrovascular accident (CVA) Syncope Social History Tobacco Use Types Packs/Day Years Used Date Smoking Tobacco: Never Smokeless Tobacco: Never Tobacco Cessation:Counseling Given: Not Answered Alcohol Use Standard Drinks/Week Comments No 0 (1 standard drink = 0.6 oz pur e alcohol) AUDIT-C Answer Date Recorded Q1: How often do you have a drink containing alc ohol? Monthly or less 01/07/2024 Q2: How many drinks containi ng alcohol do you have on a typical day when you are drinking? 1 or 2 01/07/2024 Q3: How often do you have si x or more drinks on one occasion? Never 01/07/2024 Personal Safety Answer Date Recorded Have you ever been in or are you currently in a harmful physical or emotional relationship or is someone making you feel afraid or unsafe? Denies 01/07/2024 Sex and Gender Information Value Date Recorded Sex Assigned at Not on file Legal Sex Male 5:26 PM TREATMENT MANAGER Gender Identity Not on file Sexual Orientation Not on file Last Filed Vital Signs Vital Sign Reading Time Taken Comments Blood Pressure 134/98 01/07/2024 11:15 AM TREATMENT MANAGER Pulse 66 01/07/2024 11:15 AM TREATMENT MANAGER Temperature 36.4 C (97.6 F) 01/07/2024 10:45 AM TREATMENT MANAGER Respiratory Rate 18 01/07/2024 11:15 AM TREATMENT MANAGER Oxygen Saturation 99% 01/07/2024 11:15 AM TREATMENT MANAGER Inhaled Oxygen Concentration - - Weight 111.1 kg (245 lb) 12/22/2023 3:59 PM TREATMENT MANAGER Height 185.4 cm (6' 1 ) 12/22/2023 3:59 PM TREATMENT MANAGER Body Mass Index 32.32 12/22/2023 3:59 PM TREATMENT MANAGER Plan of Treatment Not on file Insurance [facility] H[facility]/PPO Address: [address] [address] [place] [address] [facility]/PPO Address: [address] [address] [place] [address] [facility]/PPO Address: [address] [address] [place] [address] Advance Directives For more information, please contact: [phone] * Full Code (Latest Code Status on File) Date Activated Date Inactivated Comments 01/03/2018 11:54 PM 01/05/2018 6:08 PM Care Teams Doweling Machine Operator Relationship Specialty Start Date End Date Oswald Alfred DO [address] [id number] PCP - General Family Medicine 12/29/24
--- OUTSIDE RECORDS SUMMARY | 2025-03-29 16:02 | XMS_ITS | Encounter Summary ---
Author Organization [facility] Address [address] [place] [address] Phone Care Team Providers Care Belt Weaver Name Role Phone StephanieFide APRN, JACKI Primary Care Provi benigno Bhaskar Mckay MD Unavailable Abhilash Mcmillan MD Unavailable [phone] Oswald Alfred DO Primary Care Provider [phone] Encounter Details Date Type Department Care Team (Late st Contact Info) Description 01/25/2025 [facility] Central [facility]uling 1 [place] [phone] Oswald Alfred DO [address] [place] [address] Personal history of TIA (transient ischemic attack) (Primary Dx) Social History Tobacco Use Types Packs/Day Years Used Date Smoking Tobacco: Never Smokeless Tobacco: Never Alcohol Use Standard Drinks/Week Comments Yes 0 (1 standard drink = 0.6 oz pur e alcohol) occasionally Sex and Gender Information Value Date Recorded Sex Assigned at Not on file Legal Sex Male 9:15 PM CDT Gender Identity Not on file Sexual Orientation Not on file documented as of this encounter Plan of Treatment Upcoming Encounters Date Type Department Care Team (Late st Contact Info) Description 11/19/2025 2:20 PM VARNISH DIPPER [facility] On[facility] Services [address] [place] [address] Virgen Lacey, KAI [address] [place] [address] Discharge Disposition: Discharged to home or Selfcare documented as of this encounter Visit Diagnoses Diagnosis Personal history of TIA (transient ischemic attack)- Primary Transient ischemic attack (TIA), and cerebral infarction without residual deficits documented in this encounter Care Teams Belt Weaver Relationship Specialty Start Date End Date Fide Brown, NURSERY TEACHER, SHELTER ADVOCATE [address] [facility] [address] [place] [address] PCP - General Advanced Practice Nurse 12/31/23 01/28/25 Oswald Alfred DO [facility] [place] [address] PCP - General Family Medicine 01/29/25 Bhaskar Mckay MD [address] [phone] Consulting Physician General Surgery 02/17/24 Abhilash Mcmillan MD 0 [place] [address] Consulting Physician Medical Oncology 04/28/24 documented as of this encounter
--- OUTSIDE RECORDS SUMMARY | 2025-03-29 16:02 | XMS_ITS | Clinical Summary ---
Author Organization [facility] Address [address] [place] [address] Phone Care Team Providers Care Network Operations Center Engineer Name Role Phone Bhaskar Mckay MD Unavailable [phone] Abhilash Mcmillan MD Unavailable [phone] Oswald Alfred DO Primary Care Provider [phone] Allergies Active Allergy Reactions Criticality Noted Date Comments Penicillins Unknown 09/23/2016 Medications losartan (COZAAR) 25 MG Tablet Take 100 mg by mouth daily. 3 Active IBUPROFEN PO Take 3-4 Tablets by mouth as needed for Other (pain). Active Cetirizine HCl (ZYRTEC ALLERGY PO) Take 1 Tablet by mouth daily. Active methylPREDNISol one (MEDROL DOSPACK) 4 MG Tablet Therapy Pack See product package insert for dosing schedule 21 Tablet 5 Active oxyCODONE-Aceta minophen (Percocet) 10-325 MG TabletIndicatio ns:Epididymitis Take 1 Tablet by mouth every 6 hours as needed for Moderate or more severe pain. 10 Tablet 5 Active doxycycline hyclate (VIBRAMYCIN) 100 MG Capsule Take 1 Capsule by mouth 2 times daily for 10 days. 20 Capsule 5 03/08/20 25 Active Problems Problem Noted Date Diagnosed Date Lymphadenopathy 04/28/2024 Encounters Date Type Department Care Team Description 02/26/2025 6:26 AM CDT - 02/26/2025 7:37 AM CDT [facility] 1 [facility] [place] [address] Dony Velasco MD Epididymitis Discharge Disposition: Discharged to home or Selfcare 02/26/2025 Travel 02/17/2025 9:12 AM CDT - 02/17/2025 11:59 PM CDT [facility]ound 1 [facility] [place] [address] Oswald Alfred DO Discharge Disposition: Discharged to home or Selfcare 02/17/2025 Travel 01/25/2025 Transcribe Orders [facility] Central Scheduling 1 [facility] [place] [address] Oswald Alfred DO Personal history of transient cerebral ischemia (Primary Dx) 01/25/2025 Transcribe Orders [facility] Central Scheduling 1 [facility] [place] [address] Oswald Alfred DO Personal history of TIA (transient ischemic attack) (Primary Dx) from Last 3 Months Family History Medical History Relation Name Comments No Known Problems Daughter 1 No Known Problems Daughter 2 Hypertension Father Stroke Father No Known Problems Half-Brother No Known Problems Maternal Grandfather No Known Problems Maternal Grandmother No Known Problems Mother No Known Problems Paternal Grandfather No Known Problems Paternal Grandmother No Known Problems Sister 1 No Known Problems Sister 2 No Known Problems Sister 3 No Known Problems Son Relation Name Status Comments Daughter 1 Alive Daughter 2 Alive Father Half-Brother Alive Maternal Grandfather Maternal Grandmother Mother Paternal Grandfather Paternal Grandmother Sister 1 Alive Sister 2 Alive Sister 3 Alive Son Alive Social History Tobacco Use Types Packs/Day Years Used Date Smoking Tobacco: Never Smokeless Tobacco: Never Tobacco Cessation:Counseling Given: Not Answered Alcohol Use Standard Drinks/Week Comments Yes 0 (1 standard drink = 0.6 oz pur e alcohol) occasionally Sex and Gender Information Value Date Recorded Sex Assigned at Not on file Legal Sex Male 9:15 PM CDT Gender Identity Not on file Sexual Orientation Not on file Last Filed Vital Signs Vital Sign Reading Time Taken Comments Blood Pressure 134/91 02/26/2025 6:45 AM CDT Pulse 84 02/26/2025 6:45 AM CDT Temperature 36.5 C (97.7 F) 02/26/2025 6:27 AM CDT Respiratory Rate 16 02/26/2025 6:27 AM CDT Oxygen Saturation 100% 02/26/2025 6:45 AM CDT Inhaled Oxygen Concentration - - Weight 113.9 kg (251 lb) 02/26/2025 6:27 AM CDT Height 185.4 cm (6' 1 ) 02/26/2025 6:27 AM CDT Body Mass Index 33.12 02/26/2025 6:27 AM CDT Plan of Treatment Upcoming Encounters Date Type Department Care Team (Late st Contact Info) Description 11/19/2025 2:20 PM RETAIL WORKER [facility] Oncology Services [address] [place] [address] Virgen Lacey Pippa, PAC [address] [place] [address] Discharge Disposition: Discharged to home or Selfcare Health Maintenance Due Date Last Done Comments Hepatitis C Virus (HCV) Screening 1983 TdaP Immunization 1983 Hepatitis B Immunization (1 of 3 - 19+ 3-dose series) 2002 SARS-COV-2 Immunization ( season) 2024 Influenza Immunization (Seas on Ended) 2025 Respiratory Syncytial Virus (RSV) Immunization (Adult) (1 - 1-dose 75+ series) 2058 Human Papillomavirus (HPV) Immunization Aged Out No longer eligible b ased on patient's age to complete this topic Meningococcal Immunization (ACWY) Aged Out No longer eligible based on patient's age to complete this topic Pneumococcal Immunization Combined Aged Out No longer eligible based on patient's age to complete this topic Rotavirus Immunization Aged Out No lo nger eligible based on patient's age to complete this topic Procedures Procedure Name Priority Date/Time Associated Diagnosis Comments US BILATERAL CAROTID DUPLEX Routine 02/17/2025 9:49 AM CDT Personal history of transient cerebral ischemia from Last 3 Months Results * US BILATERAL CAROTID DUPLEX (02/17/2025 9:49 AM CDT) Anatomical Region Laterality Modality vascular Bilateral Ultrasound 02/24/2025 2:09 PM CDT Impressions 02/24/2025 2:12 PM CDT IMPRESSION: Velocities correspond to a less than 50 percent diameter stenosis of the right ICA. Velocities correspond to a less than 50 percent diameter stenosis of the left ICA. Antegrade direction of flow of the bilateral vertebral arteries. REFERENCE: Consensus Panel Smith-Scale and Doppler US Criteria for Diagnosis of ICA Stenosis. No stenosis: ICA PSV <125*, 0 percent plaque, ICA/CCA PSV Ratio <2.0, ICA EDV <40*. <50 percent stenosis: ICA PSV <125*, <50 percent plaque, ICA/CCA PSV Ratio <2.0, ICA EDV <40*. 50-69 percent stenosis: ICA PSV 125-230*, >=50 percent plaque, ICA/CCA PSV Ratio 2.0-4.0, ICA EDV 40-100*. >=70 percent but less than near occlusion >230, >=50 percent plaque, ICA/CAA PSV Ratio >4.0, ICA EDV >100*. *cm/sec Plaque estimate (diameter reduction) with smith-scale and color Doppler US. RSNA 2003 Narrative 02/24/2025 2:12 PM CDT EXAM DESCRIPTION: US BILATERAL CAROTID DUPLEX REASON FOR STUDY: Personal history of transient cerebral ischemia. TECHNIQUE: Smith scale, color Doppler and spectral Doppler imaging were performed. Velocity criteria are extrapolated from diameter as defined by the Society of Radiologists in Ultrasound Consensus Conference. All velocity measurements are in cm/sec. COMPARISON: No direct comparison is available. Relevant portions of the soft tissue neck CT dated 10/22/2023. FINDINGS: Right: Mild intimal thickening and plaque are seen. Distal CCA Peak Systolic Velocity: 94.9 Distal CCA End Diastolic Velocity: 26.1 Peak ICA Systolic Velocity: 86.2 ICA End Diastolic Velocity: 32 Peak ICA/CCA Systolic Ratio: 0.91 Right Vertebral Artery: Antegrade direction of flow. Left: Mild intimal thickening and plaque are seen. Distal CCA Peak Systolic Velocity: 102 Distal CCA End Diastolic Velocity: 23.3 Peak ICA Systolic Velocity: 62.7 ICA End Diastolic Velocity: 27.4 Peak ICA/CCA Systolic Ratio: 0.6 Left Vertebral Artery: Antegrade direction of flow. THIS IS AN ELECTRONICALLY VERIFIED FINAL REPORT 02/24/2025 2:09 PM - Electronically signed by Bora Kohli D.O. AP: AP Report ID: [id number] Reading Location: [place] [address] Procedure Note Bora Kohli DO - 02/24/2025 EXAM DESCRIPTION: US BILATERAL CAROTID DUPLEX REASON FOR STUDY: Personal history of transient cerebral ischemia. TECHNIQUE: Smith scale, color Doppler and spectral Doppler imaging were performed. Velocity criteria are extrapolated from diameter as defined by the Society of Radiologists in Ultrasound Consensus Conference. All velocity measurements are in cm/sec. COMPARISON: No direct comparison is available. Relevant portions of the soft tissue neck CT dated 10/22/2023. FINDINGS: Right: Mild intimal thickening and plaque are seen. Distal CCA Peak Systolic Velocity: 94.9 Distal CCA End Diastolic Velocity: 26.1 Peak ICA Systolic Velocity: 86.2 ICA End Diastolic Velocity: 32 Peak ICA/CCA Systolic Ratio: 0.91 Right Vertebral Artery: Antegrade direction of flow. Left: Mild intimal thickening and plaque are seen. Distal CCA Peak Systolic Velocity: 102 Distal CCA End Diastolic Velocity: 23.3 Peak ICA Systolic Velocity: 62.7 ICA End Diastolic Velocity: 27.4 Peak ICA/CCA Systolic Ratio: 0.6 Left Vertebral Artery: Antegrade direction of flow. THIS IS AN ELECTRONICALLY VERIFIED FINAL REPORT 02/24/2025 2:09 PM - Electronically signed by Bora Kohli D.O. AP: AP Report ID: [id number] Reading Location: [place] [address] IMPRESSION: Velocities correspond to a less than 50 percent diameter stenosis of the right ICA. Velocities correspond to a less than 50 percent diameter stenosis of the left ICA. Antegrade direction of flow of the bilateral vertebral arteries. REFERENCE: Consensus Panel Smith-Scale and Doppler US Criteria for Diagnosis of ICA Stenosis. No stenosis: ICA PSV <125*, 0 percent plaque, ICA/CCA PSV Ratio <2.0, ICA EDV <40*. <50 percent stenosis: ICA PSV <125*, <50 percent plaque, ICA/CCA PSV Ratio <2.0, ICA EDV <40*. 50-69 percent stenosis: ICA PSV 125-230*, >=50 percent plaque, ICA/CCA PSV Ratio 2.0-4.0, ICA EDV 40-100*. >=70 percent but less than near occlusion >230, >=50 percent plaque, ICA/CAA PSV Ratio >4.0, ICA EDV >100*. *cm/sec Plaque estimate (diameter reduction) with smith-scale and color Doppler US. RSNA 2002 us Oswald Alfred DO [facility] US ORDERABLES Final Re sult from Last 3 Months Insurance [facility] Care Teams Network Operations Center Engineer Relationship Specialty Start Date End Date Oswald Alfred DO [address] [address] PCP - General Family Medicine 01/29/25 Bhaskar Mckay MD [address] [address] Consulting Physician General Surgery 02/17/24 Abhilash Mcmillan MD [address] [place], [place] [id number] Consulting Physician Medical Oncology 04/28/24
--- OUTSIDE RECORDS SUMMARY | 2025-03-29 16:02 | XMS_ITS | Encounter Summary ---
Author Organization [facility] Address [address] [place] [address] Phone Care Team Providers Care Education Liaison Name Role Phone Provider, None Primary Care Provider Unavailabl e Fide Brown APRN, SALES SUPPORT COORDINATOR Primary Care Provi benigno Bhaskar Mckay MD Unavailable [phone] Abhilash Mcmillan MD Unavailable [phone] Oswald Alfred DO Primary Care Provider [phone] Encounter Details Date Type Department Care Team (Latest Contact Info) Description 09/02/2023 Transcribe Orders [facility] Central Scheduling 1 [place] [address] Fide Brown APRN, SALES SUPPORT COORDINATOR [address] [facility] 3 [place] [address] Axillary mass, bilateral (Primary Dx); Soft tissue mass Social History Tobacco Use Types Packs/Day Years [...] st Contact Info) Description 11/19/2025 2:20 PM BEE PRODUCER Office Visit [facility] Oncology Services [address] [place] [address] Virgen Lacey Pippa, PAC [address] [place] [address] Discharge Disposition: Discharged to home or Selfcare documented as of this encounter Visit Diagnoses Diagnosis Axillary mass, bilateral- Primary Soft tissue mass Disorders of soft tissue, unspecified documented in this encounter Additional Health Concerns Infection Onset Date Last Indicated Resolved Time COVID - 19 10/04/2024 10/04/2024 10/04/2024 7:45 PM BEE PRODUCER documented as of this encounter Care Teams Education Liaison Relationship Specialty Start Date End Date Provider, None [place] PCP - General 07/01/23 12/30/23 Fide Brown, APPLICATIONS SCIENTIST, SALES SUPPORT COORDINATOR [address] [facility] [address] [place] [address] PCP - General Advanced Practice Nurse 12/31/23 01/28/25 Oswald Alfred DO [address] [place] [address] PCP - General Family Medicine 01/29/25 Bhaskar Mckay MD [address] [phone] Consulting Physician General Surgery 02/17/24 Abhilash Mcmillan MD [address] [place] [address] Consulting Physician Medical Oncology 04/28/24 documented as of this encounter
--- OUTSIDE RECORDS SUMMARY | 2025-03-29 16:02 | XMS_ITS | Encounter Summary ---
Author Organization [facility] Address [address] [place] [address] Phone Care Team Providers Care Seo Expert Name Role Phone Provider, None Primary Care Provider Fide Lauren APRN, FLAVORING MACHINE OPERATOR Primary Care Provi benigno Bhaskar Mckay MD Unavailable Abhilash Mcmillan MD Unavailable Oswald Alfred DO Primary Care Provider [phone] Encounter Details Date Type Department Care Team (Latest Contact Info) Description 09/28/2023 Transcribe Orders [facility] Central Scheduling 1 [place] [address] Provider, None [place] Axillary lymphadenopathy (Primary Dx) Social History Tobacco Use Types [...] st Contact Info) Description 11/19/2025 2:20 PM RESERVATIONS CLERK Office Visit [facility] Oncology Services [address] [place] [address] Virgen Lacey Pippa, [facility] [address] [place] [address] Discharge Disposition: Discharged to home or Selfcare documented as of this encounter Visit Diagnoses Diagnosis Axillary lymphadenopathy- Primary Enlargement of lymph nodes documented in this encounter Additional Health Concerns Infection Onset Date Last Indicated Resolved Time COVID - 19 10/04/2024 10/04/2024 10/04/2024 7:45 PM RESERVATIONS CLERK documented as of this encounter Care Teams Seo Expert Relationship Specialty Start Date End Date Provider, None [place] PCP - General 07/01/23 12/30/23 Fide Brown, DEAN OF ADMISSIONS, FLAVORING MACHINE OPERATOR [address] [facility] 3 [place] [address] PCP - General Advanced Practice Nurse 12/31/23 01/28/25 Oswald Alfred DO [address] [place] [address] PCP - General Family Medicine 01/29/25 Bhaskar Mckay MD [address] [phone] Consulting Physician General Surgery 02/17/24 Abhilash Mcmillan MD 0 [place] [address] Consulting Physician Medical Oncology 04/28/24 documented as of this encounter
--- OUTSIDE RECORDS SUMMARY | 2025-03-29 16:02 | XMS_ITS ---
Author Name KARYN [facility]ER[facility] Address [address] [facility] [place] [address] Phone Organization [facility] Address [address] [place] [address] Phone Care Team Providers Care Senior Director Finance Name Role Phone CHELSYANN MARIE DO BOSS Unavailable ALLERGIES, ADVERSE REACTIONS AND ALERTS Allergy Name Allergy Date Allergy Status Allergy Severity Allergy Reaction UNKNOWN DRUG ALLERGIES MAY E XIST MEDICATIONS RxNorm Brand Name Prescription Ordered Value Order Unit Start Date Date Status Fill Status Indications 264190 losartan 100 mg tablet SIG: losartan 100 mg oral tablet, 90 days, Dispense #90 Tablet, 0 Refills, Directions: TAKE 1 TABLET BY MOUTH DAILY 90 tablet 2024 Current [id number] loratadine 10 mg tablet SIG: loratadine 10 mg oral tablet, 30 days, Dispense #30 Tablet, 0 Refills, Directions: Take 1 oral tablet once a day 30 tablet 2024 Current [id number] LOSARTAN POTASSIUM 100 MG TAB 100 mg tablet SIG: losartan 100 mg oral tablet, 90 days, Dispense #90 Tablet, 0 Refills, Directions: TAKE 1 TABLET BY MOUTH EVERY DAY 90 tablet 2024 Current PROBLEMS Problem Code Problem Description Problem Status Problem Da te Problem End Date E55.9-VITAMIN D DEFICIENCY, UNSPECIFIED VITAMIN D DEFICIENCY, UNSPECIFIED Chronic 01/24/2025 E78.49-OTHER HYPERLIPIDEMIA OTHER HYPERLIPIDEMIA Chronic 01/24/2025 E78.6-LIPOPROTEIN DEFICIENCY LIPOPROTEIN DEFICIENCY Chronic 01/24/2025 R73.03-Prediabetes Prediabetes Chronic 12/29/2024 Z86.73-Personal history of transient ischemic attack (TIA), and cerebral infarction without residual deficits Personal history of transient ischemic attack (TIA), and cerebral infarction without residual deficits Chronic 01/24/2025 [id number] (PRIMARY) HYPERTENSION ESSENTIAL (PRIMARY) HYPERTENSION Chronic 01/24/2025 PROCEDURES Procedure Description Date Notes NO PROCEDURES PERFORMED ASSESSMENTS Assessment None PLAN OF TREATMENT Assessment Planned Activity LOINC Planned Deshawn e None CONSULTATION NOTE Note Author Date None HISTORY AND PHYSICAL NOTE Note Author Date None PROGRESS NOTE Note Author Date None DISCHARGE SUMMARY Note Author Date None CHIEF COMPLAINT AND REASON FOR VISIT FUNCTIONAL STATUS Functional or Cognitive Find ing None MENTAL STATUS Cognitive Finding None ENCOUNTERS Encounter Type Provider Diagnoses Start Date Location None SOCIAL HISTORY Social Status Observation Unknown if ever smoked Sex:Male CARE TEAM INFORMATION Senior Director Finance Provider ID Role Location Phone KARYN SIERRA [id number] PHYSICIAN [address] [place] [address]
--- OUTSIDE RECORDS SUMMARY | 2025-03-29 16:02 | XMS_ITS | Clinical Summary ---
Author Organization [facility] Address [address] [place] [address] Care Team Providers Care Vending Machine Operator Name Role Phone Monalisa Oswald Hauserony Primary Care Provider [phone] Allergies Active Allergy Reactions Criticality Noted Date [...] (06/20/2020): Added automatically from request for surgery [id number] Impingement syndrome of right shoulder 0 Overview (06/20/2020): Added automatically from request for surgery [id number] Local reaction to insect sting 06/10/2020 Acute sinusitis 01/04/2018 Assessment & Plan (01/04/2018 4:16 AM AIRCRAFT ELECTRICIAN): Likely viral. Patient has 6 children at [...] 01/04/2018 Assessment & Plan (01/04/2018 4:07 AM AIRCRAFT ELECTRICIAN): Hypodense for a focus noted on CT scan in the left parietal lobe concerning for possible mass. Patient appears asymptomatic. MRI is pending. Will await result. Cerebrovascular accident (CVA) Syncope Surgical History Surgery Date Site/Laterality Comments HERNIA REPAIR CYST REMOVAL 11/08/2009 - 11/07/2010 Right under right arm ROTATOR CUFF REPAIR Right Medical History Medical History Date Comments Hypertension Stroke (HCC) 32 yrs old Asthma Family History Medical History Relation Name Comments Stroke Father Relation Name Status Comments Father Social History Tobacco Use Types Packs/Day Years [...] on file Legal Sex Male 5:26 PM AIRCRAFT ELECTRICIAN Gender Identity Not on file Sexual Orientation Not on file Obstetrics History Last Filed Vital Signs Vital Sign Reading Time Taken Comments Blood Pressure 134/98 01/07/2024 11:15 AM AIRCRAFT ELECTRICIAN Pulse 66 01/07/2024 11:15 AM AIRCRAFT ELECTRICIAN Temperature 36.4 C (97.6 F) 01/07/2024 10:45 AM AIRCRAFT ELECTRICIAN Respiratory Rate 18 01/07/2024 11:15 AM AIRCRAFT ELECTRICIAN Oxygen Saturation 99% 01/07/2024 11:15 AM AIRCRAFT ELECTRICIAN Inhaled Oxygen Concentration - - Weight 111.1 kg (245 lb) 12/22/2023 3:59 PM AIRCRAFT ELECTRICIAN Height 185.4 cm (6' 1 ) 12/22/2023 3:59 PM AIRCRAFT ELECTRICIAN Body Mass Index 32.32 12/22/2023 3:59 PM AIRCRAFT ELECTRICIAN Plan of Treatment Health Maintenance Due Date Last Done Comments Depression Screening 1983 Hepatitis C Screening 1983 Prostate Cancer Screening-PSA 1983 DTaP/Tdap/Td Vaccine (1 - Tdap) 1994 Varicella Vaccines (1 of 2 - 13+ 2-dose series) 1996 Hepatitis B Screening 2001 Regular Well Visit/Exam 18-64 2001 Influenza Vaccine (Season Ended) 2025 HPV Vaccines Aged Out No longer eligi ble based on patient's age to complete this topic Pneumococcal vaccine <65 Aged Out No longer eligible based on patient's age to complete this topic Insurance [facility] CHO[facility] PLUS [facility] CHOICE PLUS [facility] CHOICE PLUS Advance Directives For more information, please contact: [phone] * Full Code (Latest Code Status on File) Date Activated Date Inactivated Comments 01/03/2018 11:54 PM 01/05/2018 6:08 PM Care Teams Vending Machine Operator Relationship Specialty Start Date End Date Oswald Alfred DO [address] [place] [id number] PCP - General Family Medicine 12/29/24
--- OUTSIDE RECORDS SUMMARY | 2025-03-29 16:03 | XMS_ITS ---
Author Name KARYN SIERRA Address [address] [facility] [place] [place] [address] Phone Organization [facility] Address [address] [place] [address] Phone Care Team Providers Care Humanities Teacher Name Role Phone CHELSYANN MARIE DO BOSS Unavailable ALLERGIES, ADVERSE REACTIONS AND ALERTS Allergy Name Allergy Date Allergy Status Allergy Severity Allergy Reaction UNKNOWN DRUG ALLERGIES MAY E XIST MEDICATIONS RxNorm Brand Name Prescription Ordered Value Order Unit Start Date Date Status Fill Status Indications [id number] losartan 100 mg tablet SIG: losartan 100 mg oral tablet, 90 days, Dispense #90 Tablet, 0 Refills, Directions: TAKE 1 TABLET BY MOUTH DAILY 90 tablet 2024 Current [id number] loratadine 10 mg tablet SIG: loratadine 10 mg oral tablet, 30 days, Dispense #30 Tablet, 0 Refills, Directions: Take 1 oral tablet once a day 30 tablet 2024 Current [id number] LOSARTAN POTASSIUM 100 MG TAB 100 mg [...] cerebral infarction without residual deficits Chronic 01/24/2025 [id number] (PRIMARY) HYPERTENSION ESSENTIAL (PRIMARY) HYPERTENSION Chronic 01/24/2025 [...] if ever smoked Sex:Male CARE TEAM INFORMATION Humanities Teacher Provider ID Role Location Phone KARYN SIERRA [phone] PHYSICIAN [address] [place] [address]
[2025-03-29 16:06] VITALS: BP 132/86; PULSE 71; RESP 20; TEMP 36.6; O2SAT 100
--- NOTE | 2025-03-29 16:48 | ED_ITS ---
HPI - URI/Sore Throat General Chief Complaint: Upper Respiratory Infection Stated Complaint: sinus congestion Time Seen by Provider: 03/29/25 16:48 Source: patient Mode of arrival: ambulatory Limitations: no limitations History of Present Illness HPI Narrative: 39 year old male who presents to [facility] care with complaints of sinus pressure, frontal headache, sinus congestion,headache, clear nasal drainage sinus Wednesday. Patient reports that he has been taking DayQuil and also has been taking daytime allergy pill. Patient reports history of chronic sinus infections especially with weather changes. Patient reports that he has tried nasal sprays in the past and has had no help with use of any of the nasal sprays. MD elicited complaint: cough and sore throat Pertinent past history: other (chronic sinus infection) Onset (ago): day(s) (increase symptoms for 2 days) Severity: moderate Treatments prior to arrival: cold medicine and other (antihistamine) Related Data Home Medications ?Medication ?Instructions ?Recorded ?Confirmed ?Last Taken ?Type losartan 100 mg tablet 100 mg PO DAILY 07/20/24 03/29/25 Unknown History Men's Multivitamin 03/29/25 Unknown History otc antihistamine 03/29/25 Unknown History Allergies Allergy/AdvReac Type Severity Reaction Status Date / Time Penicillins Allergy Unknown Unknown Verified 03/29/25 16:07 Review of Systems Review of Systems: CONSTITUTIONAL: reports malaise, chills, sweats, reports no known fever. EYES: Denies visual changes, redness, or discharge. ENT: Reports rhinorrhea, congestion, sinus pain,no otalgia and no sore throat. CARDIOVASCULAR: Denies chest pain, palpitations, or edema. RESPIRATORY: Reports no cough.? Denies dyspnea. GASTROINTESTINAL: Denies abdominal pain, nausea, vomiting, diarrhea SKIN: Denies rash or itching. MUSCULOSKELETAL: Denies myalgia. NEUROLOGIC: Reports frontal headache. All systems reviewed & are unremarkable except as noted in HPI and below PMFSH Past Medical History Medical History Chronic sinusitis CVA (cerebral vascular accident) age 32 Hypertension Diarrhea No pertinent past medical history Surgical History Surgical History S/P right rotator cuff repair Family History Family History Mother Family history non-contributory Social History Social History Substance use: never Living arrangements: with family Gender identity (if verbalized by the patient): Male Sexual Orientation (if Verbalized by the Patient): Straight or Heterosexual Spiritual care concerns: No Comments At time of signature, agree with nursing past medical, surgical, social and family history. There is no relevant family history pertinent to the presenting complaint Exam Narrative: GENERAL: Well-appearing, well-nourished, and in no acute distress. HEAD: Normocephalic EYES: PERRLA, conjunctivae clear ENT: Nares clear, turbinates edematous and erythematous, clear discharge, sinus pressure and frontal headache. Mucous membranes moist. TM pearly arteaga with dull light reflex bilaterally; no tragal tenderness. Oropharynx erythematous without lesions. Tonsils not enlarged and without exudate, no drooling, no hoarseness, no trismus, uvula midline. NECK: Supple. No lymphadenopathy CHEST: Clear to auscultation, breath sounds equal. No wheezing, rhonchi, rales, or stridor. No respiratory distress, speaks in full sentences. no cough noted SAO2 100% on room air HEART: Regular rate and rhythm. No murmur heard. SKIN: Warm, dry, no rash. NEURO: Alert and oriented x3. PSYCH: Normal mood and affect Course Course Emergency Course: Patient is aware of diagnosis, understands and agrees to treatment plan.? Anticipatory guidance given.? Patient agrees to follow-up as directed and is aware of reasons to seek care at the emergency department. Portions of this record may have been created with voice recognition software Level of Care: Express Care Visit Vital Signs Vital signs: Vital Signs Temperature 36.6 C 03/29/25 16:06 Pulse Rate 71 03/29/25 16:06 Respiratory Rate 20 03/29/25 16:06 Blood Pressure 132/86 03/29/25 16:06 Pulse Oximetry 100 03/29/25 16:06 Oxygen Delivery Room Air 03/29/25 16:06 Temperature 36.6 C 03/29/25 16:06 Pulse Rate 71 03/29/25 16:06 Respiratory Rate 20 03/29/25 16:06 Blood Pressure 132/86 03/29/25 16:06 Pulse Oximetry 100 03/29/25 16:06 Oxygen Delivery Room Air 03/29/25 16:06 Reviewed MDM - URI/Sore Throat MDM Narrative Medical decision making narrative: Differential diagnosis considered: Lopez virus, strep pharyngitis, allergic rhinitis, upper respiratory tract infection, sinusitis, rhinosinusitis, nasopharyngitis. viral pharyngitis, otitis media, otitis externa, pneumonia, bronchitis, viral cough syndrome, viral syndrome, and influenza.? Exam findings show no acute concerns or changes; patient is non-toxic appearing and is in no distress.? Patient is appropriate for outpatient treatment and follow-up. Differential Diagnosis Differential diagnosis: Likely upper respiratory infection, sinusitis, viral infection and other (bacterial sinusitis) Medical Records Attestation: I reviewed the patient's medical records. Lab Data Attestation: I reviewed the patient's lab results. Critical Care Time Critical Care Time Critical Care Time: No Discharge Plan Discharge Clinical Impression: Bacterial sinusitis Patient Disposition: Home Condition: Stable Instructions: Antibiotic Form, Sinusitis (ED) Additional Instructions: Increase fluids especially juices and water [id number] cough and cold medicine of your choice for your symptoms Zyrtec Claritin or Clara and include Coricidin brand decongestant Steroids as directed--take with food heat to the face 20-30 minutes 4-6 times a day for pain Salt water gargles, throat lozenges or throat sprays as desired Antibiotic as directed--finish the medication Monitor for any temperature elevation If your symptoms persist, change or worsen significantly before you can contact your personal physician then please, without delay, go to the emergency department for further evaluation. Follow-up with PCP in 7-10 days or sooner if needed Follow up with PCP soon in regards to your blood pressure which is elevated above threshold for referral. Blood pressure above 120/80 may indicate pre- hypertension. 132/86 Patient Language: Kyrgyz Prescriptions: New doxycycline hyclate 100 mg capsule 100 mg PO BID Qty: 20 0RF prednisone 20 mg tablet 40 mg PO DAILY 5 Days Qty: 10 0RF No Action losartan 100 mg tablet 100 mg PO DAILY otc antihistamine Men's Multivitamin Follow-up/Referrals: Aubrie,Oswald Clemons DO [Primary Care Provider] - Time of Disposition: 17:08 Quality [place] Coma Scale Eyes: Open Verbal: Oriented and Alert Motor: Follows Commands Kevin Coma Total Score: 15
== END 2025-03-29 17:13 | disposition home or self-care (01) ==
PROVIDERS: Emergency Provider Registered Nurse; PCP Family Medicine
DX: J32.9 Chronic sinusitis, unspecified (principal); I10 Essential (primary) hypertension; Z86.73 Personal history of transient ischemic attack (TIA), and cerebral infarction without residual deficits
CPT/HCPCS: 99213; G0463